=== PATIENT | male | born 1995 | race Caucasian/White ===

== ENCOUNTER 2020-12-15 09:14 | Emergency (ER) | payer OTHER, SELFPAY ==
--- NOTE | ~2020-12-15 | XR_ITS ---
EXAMINATION: XR HAND WRIST, RIGHT CLINICAL INFORMATION: Trauma, pain COMPARISON: None TECHNIQUE: The hand and wrist are imaged in large [id number] images for a total of 3 views. FINDINGS: There are transverse fractures at mid shaft fourth and fifth metacarpals with dorsal angulation of the fracture site. There is no dislocation or destructive process. The remainder of the bony structures appear intact. The ulnar variance is neutral. There are pronator quadratus fat pad appears normal. XR/XR hand wrist RT IMPRESSION: Angulated fractures mid shaft right fourth and fifth metacarpals.
--- NOTE | ~2020-12-15 | XR_ITS ---
EXAMINATION: XR HAND, RIGHT CLINICAL INFORMATION: Post reduction COMPARISON: None TECHNIQUE: 2 views of the right hand. FINDINGS: There are transverse fractures of the mid shafts of the fourth and fifth metacarpal bones. There is a volar angulation of the metacarpal heads and distal shafts with respect to the more proximal shafts that appears unchanged. No other fracture is seen. Joint spaces are normal. There is a new overlying splint. XR/XR hand RT 2V IMPRESSION: No change in alignment of the fourth and fifth metacarpal shaft fractures from previous exam.
[2020-12-15 09:23] VITALS: BP 147/90; PULSE 88; RESP 14; TEMP 36.2; O2SAT 98; BMI 23.0
--- NOTE | 2020-12-15 09:51 | ED.EXTPRO ---
HPI - Extremity Problem General Chief complaint: Extremity Injury, Upper Stated complaint: WOUND CHECK Time Seen by Provider: 12/15/20 09:26 Source: patient Mode of arrival: ambulatory Limitations: no limitations History of Present Illness HPI Narrative: 25 y/o male presenting with right hand and arm pain 2 days after he punched a wall and broke his hand. He lives in [place] and was seen in an ED there after the incident. He was placed in a splint but he does not know what he broke. He was told he may need surgery but he denies being given any ortho follow up. He reports he has been taking Ibuprofen without improvement in his pain. He states the pain is in his hand and shoots up his arm. He denies numbness or tingling. No new injuries. MD Complaint: extremity pain Onset (ago): day(s) (2) Pain Consistency: constant Location: right and upper extremity Quality: aching and sharp Radiation: proximal Relieving factors: elevation and medication Associated symptoms: denies other symptoms Related Data Previous Rx's Medication Instructions Recorded hydrocodone-acetaminophen 1 tab PO Q6H PRN #8 tab 12/15/20 ibuprofen 600 mg PO Q6H PRN #20 tab 12/15/20 Allergies Allergy/AdvReac Type Severity Reaction Status Date / Time No Known Allergies Allergy Verified 12/15/20 09:22 Review of Systems Review of Systems: Constitutional: No Fever, No Chills Gastrointestinal: No Nausea, No Vomiting Musculoskeletal: + joint pain, + Myalgias Skin: No Skin Lesions, No rash Neuro: No Weakness, No Numbness Heme/Lymph: No Bruising PMFSH Social History Social History Smoking Status: Current every day smoker Use of substances other than those prescribed or required for medical reasons: Unknown Advance Directives: No Advance Directives Information Provided: No Physical Exam Vital Signs: Vital Signs: Last Vital Signs Temp 97.1 F 12/15/20 09:23 Pulse 88 12/15/20 09:23 Resp 14 12/15/20 09:23 BP 147/90 H 12/15/20 09:23 Pulse Ox 98 12/15/20 09:23 Body Mass Index 23.0 Appearance: Alert. Oriented X3. No acute distress. HEENT: normal inspection CVS: Normal heart rate and rhythm. Pulses normal. Respiratory: No respiratory distress. Skin: Skin warm and dry. Normal skin color. Normal skin turgor. No rashes. Extremities: right dorsal hand with palpable bony deformity and tenderness, ecchymosis or dorsal hand, limited ROM of 4th & 5th digits. NV intact distally. Neuro: Oriented X 3. No motor deficit. No sensory deficit. Course Course Course Narrative: 25 y/o male presenting with RUE pain after punching a wall. Arrives in splint. Will remove, reassess and reimage. Reevaluation(s) Reevaluation #1: XR showed angulated fractures of 4th and 5th digits. Reduction performed at the bedside with traction after he was given narcotic pain medication. Repeat XR showing no change in alignment. Splint in place. He will follow up with Ortho on Friday Consultations Consultation #1: Orthopedics - Ej Procedures Orthopedic Joint Reduction Joint #1: Time Out Performed: Yes Joint Reduction Location: other (hand) Analgesia: other (vicoden, toradol) Technique used: traction/counter-traction and direct manipulation Post-reduction neuro exam: intact Post-reduction vascular: intact Post Reduction X-Ray Obtained: Yes Post Reduction X-Ray Results: reduced Splint Applied: Yes Patient Tolerated Procedure: well Critical Care Time Critical Care Time Critical Care Time: No Discharge Plan Discharge Clinical Impression: Fracture of hand Qualifiers: Encounter type: subsequent encounter Fracture type: closed Laterality: right Fracture healing: with routine healing Qualified Code(s): S62.91XD - Unspecified fracture of right wrist and hand, subsequent encounter for fracture with routine healing Patient Disposition: Home, Self-Care Instructions: Hand Fracture (ED), Boxer Fracture (ED) Additional Instructions: Your x-rays today showed that you broke 2 bones in your hand. Keep the splint in place until you are evaluated by Orthopedics on Friday. Keep your hand elevated whenever possible & ice it several times per day. Recommend ibuprofen 600-800 mg every 6 hours as needed for pain. Take the prescribed pain medication as needed for pain. Do not drive after taking this medication, it can make you drowsy. Follow up with Orthopedics Friday. Prescriptions: New hydrocodone-acetaminophen 5-325 mg tablet 1 tab PO Q6H PRN (Reason: pain) Qty: 8 RF: 0 ibuprofen 600 mg tablet 600 mg PO Q6H PRN (Reason: pain) Qty: 20 RF: 0 Referrals: Ej Berg PA-C [Physician Corporate Trust Officer] - 2 days (4th & 5th metacarpal fractures s/p reduction) Discharge Date/Time: 12/15/20 12:59
--- NOTE | 2020-12-15 09:52 | PC.NURSE ---
splint removed as instructed by nghia mckeon, +swelling rt hand, cold pack applied and arm elevated, +radial pulse
[2020-12-15] MEDS: oxyCODONE HCl Immed Release 5 MG TABLET PO (10:41)
[2020-12-15] MEDS: Acetaminophen 325 MG TABLET 975 MG PO (10:41)
[2020-12-15] MEDS: Ketorolac Tromethamine 30 MG/ML VIAL IM (10:43)
--- NOTE | 2020-12-15 11:36 | PC.NURSE ---
JAROD LENNON SPOKE WITH [facility] RE: XRAYS AND POC, PA TO REDUCE AND RESPLINT
== END 2020-12-15 12:59 | disposition home or self-care (01) ==
PROVIDERS: Emergency Provider Emergency Medicine Emergency Medical Services
DX: S62.324A Displaced fracture of shaft of fourth metacarpal bone, right hand, initial encounter for closed fracture (principal); S62.326A Displaced fracture of shaft of fifth metacarpal bone, right hand, initial encounter for closed fracture; W22.09XA Striking against other stationary object, initial encounter; Y93.89 Activity, other specified; Y92.9 Unspecified place or not applicable; Y99.9 Unspecified external cause status
CPT/HCPCS: 26605; 73110; 73120; 73130; 96372; 99283; 99284; J1885

== ENCOUNTER → 2020-12-18 10:56 | Outpatient (BNVA) | payer OTHER, SELFPAY | PROVIDERS: Visit Provider Physician Assistant | DX: S62.306A Unspecified fracture of fifth metacarpal bone, right hand, initial encounter for closed fracture (principal); S62.304A Unspecified fracture of fourth metacarpal bone, right hand, initial encounter for closed fracture | CPT/HCPCS: 29085 ==

== ENCOUNTER 2020-12-21 08:47 | Day surgery (SDC) | payer OTHER, SELFPAY ==
[2020-12-20 10:38] VITALS: BMI 23.0
--- NOTE | 2020-12-20 12:18 | HO.ANESPROP2 ---
Documented by User: Jeanine Hurtado 12/20/20 12:20 HPI - Anesthesia Eval Consult details Narrative: 25yo M for Right Finger Fx ORIF,4th,5th metacarpal PMFSH Active Problems Active Problems: All Active Problems (Updated 12/18/20 @ 11:44 by Ej Berg PA-C) Fracture of fourth metacarpal bone of right hand (Acute) Fracture of fifth metacarpal bone of right hand (Acute) Family History Family History Mother No problems noted. Father No problems noted. Social History Social History Alcohol intake: never Smoking Status: Never smoker Substance Use Type: Marijuana Current occupational status: unemployed Meds Allergies Allergy/AdvReac Type Severity Reaction Status Date / Time No Known Allergies Allergy Verified 12/15/20 09:22 Exam Exam Date and Time: December 20, 2020 1218 Height,Weight and Vital Signs: Height 5 ft 7 in Weight 66.678 kg Assessment and Plan Assessment Anesthesia Assessment: Chart Reviewed Documented by User: Kay Fong 12/21/20 10:04 PMFSH Family History Family History Mother No problems noted. Father No problems noted. Social History Social History Alcohol intake: never Smoking Status: Never smoker Substance Use Type: Marijuana Current occupational status: unemployed Meds Allergies Allergy/AdvReac Type Severity Reaction Status Date / Time No Known Allergies Allergy Verified 12/15/20 09:22 Exam Airway Mallampati Class: II TM Dist: >3cm Neck ROM: Full Assessment and Plan Assessment Anesthesia Assessment: Anesthesia Plan Discussed and Chart Reviewed Final Anesthetic Review NPO: Yes ASA Class: I Final Preanesthetic Review: No Changes in Pt Med Stat, Meds/Allgs Chart Reviewed, Consent Obtained/Reviewed and Anes Risks/Benef Reviewed Patient Risk: Low Procedure Risk: Low Assessment/Block/Sedation in SS: Assess/Block/Sedation-SS Anesthetic Plan Anesthetic Plan: GA Disposition: Standard PACU
[2020-12-21] VITALS (12 sets, daily range): BP systolic 123–160; BP diastolic 66–94; PULSE 76–100; RESP 16–18; TEMP 36.4–36.7; O2SAT 97–100
--- NOTE | ~2020-12-21 | FL_ITS ---
EXAMINATION: XR FLUOROSCOPY WITH IMAGES CLINICAL INFORMATION: Reduction fractures fourth and fifth metacarpal right hand. COMPARISON: Radiographs right hand 12/15/2020 TECHNIQUE: Fluoroscopy performed by Dr. Juliann Richardson. Fluoroscopy time: 78 seconds DAP: 42.08 mGycm2 Images: 5 FINDINGS: The fourth and fifth metacarpal shaft fractures are reduced with orthopedic pins along the long axis of the metacarpals. Fracture fragments are in near-anatomic alignment. FL/FL guidance in OR IMPRESSION: Status post reduction fractures right fourth and fifth metacarpals.
[2020-12-21] MEDS: Lactated Ringers 1,000 ML 100 ML IVCONT (09:15)
--- NOTE | 2020-12-21 11:22 | MHC.SHP ---
Pre-Procedural Eval Section B Chief Complaint: finger fx Allergies: Allergies Allergy/AdvReac Type Severity Reaction Status Date / Time No Known Allergies Allergy Verified 12/15/20 09:22 Plan I have reviewed the history and physical and performed a pertinent physical examination on my patient. No changes have occurred unless specified. rt 4,5 mc fxs crpp vs orif
--- NOTE | 2020-12-21 11:23 | W.PM.OPN ---
Operative Note Operative Note Date of Service: 12/21/20 Narrative: Operative Note Narrative: Preop diagnosis: 1. Right 4th metacarpal shaft fracture 2. Right 5th metacarpal shaft fracture Postop diagnosis: Same Procedure: 1. Right 4th Metacarpal fracture open reduction internal fixation 2. Right 5th metacarpal fracture open reduction internal fixation 3. Ulnar nerve block Surgeon: Juliann Richardson MD Anesthesia: General Findings: Metacarpal fractures, interposed muscle Implants: 0.062 K-wires times 2 Tourniquet time: 21 min EBL: Minimal Specimen: None Drains: None Complications: None Disposition: Brought to the recovery room in stable condition Plan: Follow-up in 10-14 days for a wound check, postop radiographs and for placement in a short-arm finger spica cast Anticipate K-wire removal in 4 weeks based on interval bony healing Educate the patient that full fracture healing anticipated in approximately 8-12 weeks. Indications: The patient is 25 years old with right 4th and 5th metacarpal shaft fractures sustained after punching a wall . The risks and benefits of operative treatment, including but not limited to risk of damage to blood vessels, nerves, tendons, infection, recurrence, delayed or nonunion of fracture, persistent pain or numbness, incomplete resolution of preoperative symptoms, or need for further surgery were discussed with the patient and they wished to proceed with surgery. Procedure: Once consent was obtained patient was brought back to the operating suite and placed in the operating table in a supine position. Perioperative antibiotics and general anesthesia was administered by the anesthesia team. A tourniquet was applied to the proximal aspect of the right upper extremity and the limb was prepped and draped in a standard surgical fashion. Tourniquet was not inflated during the case. The FluoroScan was used during the case to assist with our fracture reduction and placement of all implants. A closed reduction was attmpted on the patient's right 4th and 5th metacarpal shaft fractures, but was unsuccessful. A 3 cm longitudinal incision was made centered between the 2 4th and 5th metacarpal fractures. The incision was made through the skin to the subcutaneous tissues using a 15. Blade. I then 1st dissected down to the 4th metacarpal shaft fracture site. There was some muscle interposed and this was removed. An open reduction was then performed. I placed a single 0.062 K-wire retrograde through the head of the 4th metacarpal extending proximally across the fracture site to the base of the metacarpal. I then dissected down to the 5th metacarpal shaft fracture and performed an open reduction. I placed a single 0.062 K-wire retrograde through the head of the 5th metacarpal extending proximally across the fracture site to the base of the metacarpal. Fracture alignment was assessed for both angular and rotational malalignment. Once satisfied with our fracture reduction and implant placement, the K-wires were bent and cut short and pin caps applied. Final fluoroscopic images were then obtained. The wounds were copiously irrigated with normal saline. An ulnar nerve block was then performed by infiltrating about the ulnar nerve at the wrist with some 0.25% plain Marcaine for postop pain control. A Sterile dressing and short volar splint was applied. The patient appears to have tolerated the procedure well and with no complications. All digits were well vascularized at the conclusion of the case.
[2020-12-21] MEDS: fentaNYL citrate/PF 100 MCG/2 ML VIAL 50 MCG IVPUSH ×3 (13:08→13:42)
[2020-12-21] MEDS: Acetaminophen 325 MG TABLET 650 MG PO (13:09)
[2020-12-21] MEDS: oxyCODONE HCl Immed Release 5 MG TABLET PO (13:10)
== END 2020-12-21 14:23 ==
LOC: HO.SSS 08:48
PROVIDERS: Visit Provider Orthopaedic Surgery
PROC: (CPT 26746; principal; 2020-12-21 11:00)
DX: S62.324A Displaced fracture of shaft of fourth metacarpal bone, right hand, initial encounter for closed fracture (principal); S62.326A Displaced fracture of shaft of fifth metacarpal bone, right hand, initial encounter for closed fracture; M62.89 Other specified disorders of muscle; W22.09XA Striking against other stationary object, initial encounter; Y93.89 Activity, other specified; Y92.9 Unspecified place or not applicable; Y99.8 Other external cause status; F17.210 Nicotine dependence, cigarettes, uncomplicated; F12.90 Cannabis use, unspecified, uncomplicated
CPT/HCPCS: 26746 ×2; J0690; J1100; J1885; J2250; J2405; J3010

== ENCOUNTER 2021-01-01 08:34 | Outpatient (REF) | payer OTHER, SELFPAY ==
--- NOTE | ~2021-01-01 | XR_ITS ---
EXAMINATION: XR HAND, RIGHT CLINICAL INFORMATION: Right hand pain. COMPARISON: Right hand radiographs dated 12/15/2020. TECHNIQUE: PA, lateral, and oblique views of the right hand. FINDINGS: Orthopedic wires through the 4th and 5th metacarpals across mid diaphyseal fractures which have improved anatomic alignment when compared to the radiographs dated 12/15/2020. Minimal if any new bone/callus formation. No osseous erosion. No abnormal soft tissue calcification. XR/XR hand RT min 3V IMPRESSION: Orthopedic wires through 4th and 5th metacarpal fractures in near anatomic alignment which has improved when compared to the radiographs dated 12/15/2020. Minimal if any new bone/callus formation.
== END 2021-01-01 08:35 | disposition home or self-care (01) ==
LOC: HO.HOSX 08:34
PROVIDERS: Visit Provider Orthopaedic Surgery
DX: M79.641 Pain in right hand (principal); S62.304A Unspecified fracture of fourth metacarpal bone, right hand, initial encounter for closed fracture; S62.306A Unspecified fracture of fifth metacarpal bone, right hand, initial encounter for closed fracture; X58.XXXA Exposure to other specified factors, initial encounter; Y93.9 Activity, unspecified; Y92.9 Unspecified place or not applicable; Y99.8 Other external cause status
CPT/HCPCS: 73130

== ENCOUNTER 2021-01-18 17:14 | Outpatient (REF) | payer OTHER, SELFPAY ==
--- NOTE | ~2021-01-18 | XR_ITS ---
EXAMINATION: XR HAND, RIGHT CLINICAL INFORMATION: Fracture COMPARISON: Previous x-ray most recent 01/01/2021 TECHNIQUE: Three views of the right hand. FINDINGS: There are pins or wires in the fourth and fifth metacarpal bones transfixing mid shaft fractures. There is some indistinctness of the fracture line and bony callus formation of the fourth metacarpal bone suggestive of some healing. Fifth metacarpal fracture appears unchanged. Alignment is unchanged. No other fracture is seen. Soft tissues are unremarkable. XR/XR hand RT min 3V IMPRESSION: ORIF of right fourth and fifth metacarpal shaft fractures.
== END 2021-01-18 17:15 | disposition home or self-care (01) ==
LOC: HO.HOSX 17:14
PROVIDERS: Visit Provider Orthopaedic Surgery
DX: Z13.89 Encounter for screening for other disorder (principal)

== ENCOUNTER → 2021-01-22 09:06 | Outpatient (BNVA) | payer OTHER, SELFPAY | PROVIDERS: Visit Provider Orthopaedic Surgery | DX: S62.304D Unspecified fracture of fourth metacarpal bone, right hand, subsequent encounter for fracture with routine healing (principal); S62.306D Unspecified fracture of fifth metacarpal bone, right hand, subsequent encounter for fracture with routine healing | CPT/HCPCS: 73130 ==

== ENCOUNTER 2021-02-12 09:15 | Outpatient (REF) | payer OTHER, SELFPAY ==
--- NOTE | ~2021-02-12 | XR_ITS ---
EXAMINATION: XR HAND, RIGHT CLINICAL INFORMATION: Right hand pain. Fracture follow up. COMPARISON: Most recent right hand radiographs dated 01/22/2021. TECHNIQUE: PA, lateral, and oblique views of the right hand. FINDINGS: Interval removal of the 4th and 5th metacarpal orthopedic pins. Redemonstration of minimally displaced fractures through the 4th and 5th metacarpal diaphyses in unchanged anatomic alignment. Persistent fracture gaps appear similar when compared to the prior examination without significant interval new bone/callus formation. XR/XR hand RT min 3V IMPRESSION: Interval removal of 4th and 5th metacarpal orthopedic pins across mid diaphyseal fractures which appear unchanged in alignment when compared to the prior examination. No significant interval new bone/callus formation.
== END 2021-02-12 09:16 | disposition home or self-care (01) ==
LOC: HO.HOSX 09:15
PROVIDERS: Visit Provider Orthopaedic Surgery
DX: S62.304A Unspecified fracture of fourth metacarpal bone, right hand, initial encounter for closed fracture (principal); S62.306A Unspecified fracture of fifth metacarpal bone, right hand, initial encounter for closed fracture
CPT/HCPCS: 73130

== ENCOUNTER 2021-03-12 08:54 | Outpatient (REF) | payer OTHER, SELFPAY | END 2021-03-12 08:55 | disposition home or self-care (01) | LOC: HO.HOSX 08:54 | PROVIDERS: Visit Provider Orthopaedic Surgery | DX: Z13.89 Encounter for screening for other disorder (principal) ==

== ENCOUNTER 2023-05-13 02:59 | Emergency (ER) | payer MEDICAID, SELFPAY ==
[2023-05-13 03:07] VITALS: BP 147/88; PULSE 87; RESP 18; TEMP 36.7; O2SAT 98; BMI 22.7
[2023-05-13 03:54] VITALS: BP 133/69; PULSE 79; RESP 16; O2SAT 98
--- NOTE | 2023-05-13 04:08 | PC.NURSE ---
Pt appears to be sleeping, awakens with verbal command, ambulates with a steady gait, Pt provided us with urine sample, and sent to lab. Pt mother states pt called her from work, disoriented asking where he was, what he's doing, reported smoking marijuana, and thinking it was laced with something, mother reports that pt smokes marijuana daily, and smokes around 50 bags of heroin daily.
[2023-05-13 04:21] LABS: Amphetamine Screen Urine Not Detected (Not Detect); Barbiturates, Urine Not Detected (Not Detect); Benzodiazepines Screen Urine Not Detected (Not Detect); Cannabinoid Screen Urine POSITIVE (Not Detect); Cocaine Screen Urine POSITIVE (Not Detect); Fentanyl, urine POSITIVE (Not Detect); Opiate Screen Urine POSITIVE (Not Detect); Phencyclidine Screen Urine Not Detected (Not Detect)
--- NOTE | 2023-05-13 04:34 | ED_ITS ---
HPI - General Adult General Chief complaint: General Medical Stated complaint: Disoriented, confused Time Seen by Provider: 05/13/23 04:34 Source: patient Mode of arrival: ambulatory Limitations: no limitations History of Present Illness HPI narrative: Patient history of substance abuse use heroin which she use all day yesterday and then he had marijuana last night felt little different think it was laced with something never had similar feeling in the past no nausea no vomiting no shortness of breath no passing out Related Data Previous Rx's Medication Instructions Recorded hydrocodone 5 mg-acetaminophen 325 1 tab PO Q6H PRN pain #8 tabs /19/21 mg tablet ibuprofen 600 mg tablet 600 mg PO Q6H PRN pain #20 tabs 21 hydrocodone 5 mg-acetaminophen 325 1 - 2 tab PO Q6H PRN pain #20 tabs 03//21 mg tablet Allergies Allergy/AdvReac Type Severity Reaction Status Date / Time No Known Allergies Allergy Verified 05/13/23 03:10 Review of Systems Review of Systems: Yes all other systems are reviewed and are negative [facility] Family History Family History Mother No problems noted. Father No problems noted. Social History Social History Alcohol intake: never Smoked in Last 30 Days: Yes Use of substances other than those prescribed or required for medical reasons: Yes Substance Use Type: Heroin and Marijuana Substance Use Type Other:: marijuana Substance Use Frequency: Daily Advance Directives: No Advance Directives Information Provided: No Current occupational status: unemployed Current occupation: rt handed Physical Exam ED Vital Signs: Vital Signs - 24 hr 05/13/23 03:07 05/13/23 03:54 Temperature 98.1 F Pulse Rate 87 79 Respiratory Rate 18 16 Blood Pressure 147/88 H 133/69 Pulse Oximetry 98 98 Oxygen Delivery Method Room Air Room Air BMI result Body Mass Index 22.7 Appearance: Alert. Oriented X3. No acute distress. Eyes: PERRLA, No Nystagmus ENT: Pharynx normal. Oral Mucosa moist Neck: Normal inspection. Neck supple. CVS: Normal heart rate and rhythm. Pulses normal. Respiratory: No respiratory distress. Equal air entry bilateral, no wheezing/rales/rhonchi Abdomen: Soft and nontender. Bowel sounds are present, no mass palpable, no CVA tenderness Skin: Skin warm and dry. Normal skin color. Normal skin turgor. Extremities: No lower extremity edema. No calf tenderness Neuro: Oriented X 3. No motor deficit. No sensory deficit.No cerebellar signs , cranial nerves II-XII intact Medical Decision Making Medical Decision Making [facility] Narrative: Patient urine positive for fentanyl heroin cocaine and marijuana saturating 98% family is with the patient patient at this time does not want to go to detox will be given instructions follow-up with detox if he is interested will give Narcan to take home Lab Data [facility] Lab Attestation statement: I reviewed the patient's lab results. Labs: Lab Results 05/13/23 Range/Units 04:03 Urine Opiates Screen POSITIVE H (Not Detect) Urine Fentanyl Screen POSITIVE H (Not Detect) Ur Barbiturates Screen Not Detected (Not Detect) Ur Phencyclidine Scrn Not Detected (Not Detect) Ur Amphetamines Screen Not Detected (Not Detect) U Benzodiazepines Scrn Not Detected (Not Detect) Urine Cocaine Screen POSITIVE H (Not Detect) U Marijuana (THC) Screen POSITIVE H (Not Detect) Discharge Plan Discharge Clinical Impression: Polysubstance abuse Patient Disposition: Home, Self-Care Instructions: Polysubstance Abuse (ED) Additional Instructions: Stop using drugs Follow-up with detox Prescriptions: No Action hydrocodone-acetaminophen 5-325 mg tablet 1 tab PO Q6H PRN (Reason: pain) Qty: 8 0RF Rx Instructions: for 3 days ibuprofen 600 mg tablet 600 mg PO Q6H PRN (Reason: pain) Qty: 20 0RF hydrocodone-acetaminophen 5-325 mg tablet 1 - 2 tab PO Q6H PRN (Reason: pain) Qty: 20 0RF
[2023-05-13] MEDS: Naloxone HCl Nasal TAKE HOME 4 MG SPRAY 8 MG NOSTRILALT (05:05)
== END 2023-05-13 05:07 | disposition home or self-care (01) ==
PROVIDERS: Emergency Provider Internal Medicine
DX: F19.10 Other psychoactive substance abuse, uncomplicated (principal); F12.90 Cannabis use, unspecified, uncomplicated
CPT/HCPCS: 80307; 99284

== ENCOUNTER 2023-05-21 20:25 | Emergency (ER) | payer MEDICAID, SELFPAY ==
[2023-05-21 20:59] VITALS: BP 130/81; PULSE 98; RESP 16; TEMP 37; O2SAT 99; BMI 25.1
[2023-05-21 22:15] LABS: Hematocrit 42.9 % (42.0-52.0); Hemoglobin 14.3 g/dl (14.0-18.0); Mean Corpuscular HGB Conc 33.3 g/dl (31.0-36.0); Mean Corpuscular Hemoglobin 29.6 pg (27.0-33.0); Mean Corpuscular Volume 88.8 fL (80.0-98.0); Mean Platelet Volume 9.5 fL (9.4-12.4); Platelet Count 244 X10*3/uL (160-400); Red Blood Count 4.83 X10*6/uL (4.60-5.80); Red Cell Distribution Width 12.7 % (11.0-16.0); White Blood Count 9.3 X10*3/uL (4.8-10.8)
[2023-05-21 22:29] LABS: Alanine Aminotransferase 310 U/L (0-40); Albumin Level 4.1 g/dL (3.5-5.0); Alkaline Phosphatase 138 U/L (39-117); Anion Gap 13 (12-20); Aspartate Amino Transferase 155 U/L (5-37); Bilirubin Total 0.5 mg/dL (0.0-1.0); Blood Urea Nitrogen 9 mg/dL (9-16); Calcium 9.3 mg/dL (8.4-10.2); Carbon Dioxide 26 mmol/L (22-29); Chloride 104 mmol/L (96-108); Creatinine Clr Calc Pharmacy 141.4; Estimated Glomerular Filt Rate > 60; Glucose Random 79 mg/dL (60-115); Potassium 3.7 mmol/L (3.3-5.1); Sodium 139 mmol/L (135-145); Total Protein 7.4 g/dL (6.5-8.0)
--- NOTE | 2023-05-21 23:39 | ED_ITS ---
HPI - General Adult General Chief complaint: General Medical Stated complaint: freddy feet swelling Time Seen by Provider: 05/21/23 22:52 Source: patient Mode of arrival: ambulatory Limitations: no limitations History of Present Illness HPI narrative: Patient with history substance abuse cocaine fentanyl and marijuana take Tylenol 3 -4 tab every day comes here for bilateral leg swelling specially L leg with slight rash no fever no chills no abdominal pain no nausea no vomiting left foot had insect bite few days ago Related Data Previous Rx's Medication Instructions Recorded hydrocodone 5 mg-acetaminophen 325 1 tab PO Q6H PRN pain #8 tabs 12/15/20 mg tablet ibuprofen 600 mg tablet 600 mg PO Q6H PRN pain #20 tabs 12/15/20 hydrocodone 5 mg-acetaminophen 325 1 - 2 tab PO Q6H PRN pain #20 tabs 12/21/ mg tablet cephalexin 500 mg capsule 500 mg PO QID 10 days #40 caps 05/22/23 doxycycline hyclate 100 mg tablet 100 mg PO BID #20 tabs 05/22/23 Allergies Allergy/AdvReac Type Severity Reaction Status Date / Time No Known Allergies Allergy Verified 05/13/23 03:10 Review of Systems Review of Systems: Yes all other systems are reviewed and are negative [facility] Family History Family History Mother No problems noted. Father No problems noted. Social History Social History Alcohol intake: never Substance Use Type: Heroin and Marijuana Advance Directives: No Advance Directives Information Provided: No Current occupational status: unemployed Current occupation: rt handed Physical Exam ED Vital Signs: Vital Signs - 24 hr 05/21/23 20:59 Temperature 98.6 F Pulse Rate 98 Respiratory Rate 16 Blood Pressure 130/81 Pulse Oximetry 99 Oxygen Delivery Method Room Air BMI result Body Mass Index 25.1 Appearance: Alert. Oriented X3. No acute distress. Eyes: PERRLA, No Nystagmus no pallor or icterus ENT: Pharynx normal. Oral Mucosa moist Neck: Normal inspection. Neck supple. CVS: Normal heart rate and rhythm. Pulses normal. Respiratory: No respiratory distress. Equal air entry bilateral, no whe ezing/rales/rhonchi Abdomen: Soft and nontender. Bowel sounds are present, no mass palpable, no CVA tenderness Skin: Skin warm and dry. Normal skin color. Normal skin turgor. Extremities: Left leg with erythematous rash in 1+ pitting edema. No calf tenderness Neuro: Oriented X 3. No motor deficit. No sensory deficit.No cerebellar signs , cranial nerves II-XII intact Medications Administered Discontinued Medications Generic Name Dose Route Start Last Admin Trade Name Freq PRN Reason Stop Dose Admin Cephalexin HCl 500 mg 05/22/23 00:07 05/22/23 00:17 Cephalexin 500 Mg Capsule PO 05/22/23 00:08 500 mg ONCE ONE Administration Doxycycline Monohydrate 100 mg 05/22/23 00:07 05/22/23 00:17 Doxycycline Monohydrate 100 Mg Capsule PO 05/22/23 00:08 100 mg ONCE ONE Administration Medical Decision Making Medical Decision Making [facility] Narrative: Patient's elevated liver enzymes etiology not very clear patient uses drugs but no alcohol use will check Tylenol less patient denies any alcohol use Tylenol level is normal 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 05/21/23 22:08 05/21/23 22:08 Labs: Lab Results 05/21/23 05/21/23 05/21/23 Range/Units 22:08 22:08 23:59 WBC 9.3 (4.8-10.8) X10*3/uL RBC 4.83 (4.60-5.80) X10*6/uL Hgb 14.3 (14.0-18.0) g/dl Hct 42.9 (42.0-52.0) % MCV 88.8 (80.0-98.0) fL MCH 29.6 (27.0-33.0) pg MCHC 33.3 (31.0-36.0) g/dl RDW 12.7 (11.0-16.0) % Plt Count 244 (160-400) X10*3/uL MPV 9.5 (9.4-12.4) fL Absolute Nucleated RBC 0.000 (0.0-0.012) X10*3/uL Nucleated RBC % (auto) 0.0 (0.0-0.2) /100WBC Sodium 139 (135-145) mmol/L Potassium 3.7 (3.3-5.1) mmol/L Chloride 104 (96-108) mmol/L Carbon Dioxide 26 (22-29) mmol/L Anion Gap 13 (12-20) BUN 9 (9-16) mg/dL Creatinine 0.74 (0.5-1.4) mg/dL Estim Creat Clear Calc 141.4 Estimated GFR > 60 Random Glucose 79 (60-115) mg/dL Calcium 9.3 (8.4-10.2) mg/dL Total Bilirubin 0.5 (0.0-1.0) mg/dL AST 155 H (5-37) U/L ALT 310 H (0-40) U/L Alkaline Phosphatase 138 H (39-117) U/L Total Protein 7.4 (6.5-8.0) g/dL Albumin 4.1 (3.5-5.0) g/dL Acetaminophen < 17 (<30) mcg/mL Discharge Plan Discharge Clinical Impression: Cellulitis, Elevated LFTs Patient Disposition: Home, Self-Care Instructions: Cellulitis (ED) Additional Instructions: Do not take Tylenol stop taking cocaine and other street drugs Your liver enzymes are elevated need to follow-up with gastroenterology Take antibiotic as advised for cellulitis Keep your leg elevated Prescriptions: New cephalexin 500 mg capsule 500 mg PO QID 10 Days Qty: 40 0RF doxycycline hyclate 100 mg tablet 100 mg PO BID Qty: 20 0RF No Action hydrocodone-acetaminophen 5-325 mg tablet 1 tab PO Q6H PRN (Reason: pain) Qty: 8 0RF Rx Instructions: for 3 days ibuprofen 600 mg tablet 600 mg PO Q6H PRN (Reason: pain) Qty: 20 0RF hydrocodone-acetaminophen 5-325 mg tablet 1 - 2 tab PO Q6H PRN (Reason: pain) Qty: 20 0RF Stand Alone Forms: Work/School Release Interventions: ED Discharge Assessment Last Done: 05/22/23 00:20 Discharge Date/Time: 05/22/23 00:22
[2023-05-22] MEDS: cephALEXin 500 MG CAPSULE PO (00:17)
[2023-05-22] MEDS: Doxycycline Monohydrate 100 MG CAPSULE PO (00:17)
[2023-05-22 00:24] LABS: Acetaminophen LAB < 17 mcg/mL (<30)
== END 2023-05-22 00:22 | disposition home or self-care (01) ==
PROVIDERS: Emergency Provider Internal Medicine
DX: L03.116 Cellulitis of left lower limb (principal); R60.0 Localized edema; R21 Rash and other nonspecific skin eruption; R79.89 Other specified abnormal findings of blood chemistry; Z79.899 Other long term (current) drug therapy
CPT/HCPCS: 36415; 80053; 80143; 85027; 99282; 99283

== ENCOUNTER 2023-09-24 15:50 | Emergency (ER) | payer MEDICAID, SELFPAY ==
--- NOTE | 2023-09-24 16:27 | ED_ITS ---
HPI - Back Pain/Injury General Chief Complaint: Back Pain/Injury Stated Complaint: sharp back pain Time Seen by Provider: 09/24/23 20:14 Source: patient, RN notes reviewed and old records reviewed Mode of arrival: ambulatory History of Present Illness HPI Narrative: 28-year-old male with no significant past history presenting to the ED complaining of nonradiating left-sided low back pain x 3 days with intermittent left side pain. denies known injury/ trauma or fall. Patient also reports had outpatient labs a few months ago and was noted to have elevated liver enzymes and is concerned about this/his back pain being related to elevated LFTs. Also reports 1 episode of dysuria. Denies fever/chills, incontinence/retention, fall, hematuria, Tylenol/ETOH use Related Data Previous Rx's Medication Instructions Recorded hydrocodone 5 mg-acetaminophen 325 1 tab PO Q6H PRN pain #8 tabs 12/15/20 mg tablet ibuprofen 600 mg tablet 600 mg PO Q6H PRN pain #20 tabs 12/15/20 hydrocodone 5 mg-acetaminophen 325 1 - 2 tab PO Q6H PRN pain #20 tabs 12/21/20 mg tablet cephalexin 500 mg capsule 500 mg PO QID 10 days #40 caps 05/22/23 doxycycline hyclate 100 mg tablet 100 mg PO BID #20 tabs 05/22/23 cyclobenzaprine 5 mg tablet 5 mg PO Q8H PRN pain (scale score 09/24/23 7-10) 5 days #14 tabs lidocaine 5 % topical patch 1 patch topical DAILY PRN pain #30 09/24/23 (Lidoderm) ea naproxen 500 mg tablet 500 mg PO BID PRN pain 10 days #20 09/24/23 tabs doxycycline hyclate 100 mg tablet 100 mg PO BID #14 tabs 09/25/23 moxifloxacin 400 mg tablet 400 mg PO DAILY 7 days #7 tabs 09/25/23 Allergies Allergy/AdvReac Type Severity Reaction Status Date / Time No Known Allergies Allergy Verified 05/13/23 03:10 Review of Systems 2 Review of Systems: Constitutional: No Fever, No Chills ENT/Mouth: No Ear Pain, No Nasal Congestion, No sore throat, No Rhinorrhea, No Swallowing Difficulty Cardiovascular: No Chest Pain, No SOB Respiratory: No Cough Gastrointestinal: No Nausea, No Vomiting, No Diarrhea, No Constipation, No Abdominal pain Genitourinary: +Dysuria, No Urinary Frequency, No Hematuria, No Urinary Incontinence/retention, No Flank Pain Musculoskeletal: + joint pain, No Myalgias, No Joint Swelling Skin: No Skin Lesions, No rash Neuro: No Weakness, No Numbness, No Paresthesias Yes all other systems are reviewed and are negative Constitutional: Constitutional: Reports as per [facility] Past Medical History Attestation statement: The following information was validated with the patient. Source: old records reviewed Medical History No pertinent past medical history Family History Family History Mother No problems noted. Father No problems noted. Social History Social History Alcohol intake: current Alcohol intake frequency: a few times a week Smoked in Last 30 Days: Yes Use of substances other than those prescribed or required for medical reasons: Yes Substance Use Type: Heroin Substance Use Frequency: Daily Advance Directives: No Advance Directives Information Provided: Yes Current occupational status: unemployed Current occupation: rt handed Physical Exam 2 Vital Signs: Vital Signs: Last Vital Signs Temp 98.8 F 09/24/23 20:25 Pulse 74 09/24/23 20:25 Resp 16 09/24/23 20:25 BP 206/117 H 09/24/23 20:25 Pulse Ox 98 09/24/23 20:25 O2 Del Method Room Air 09/24/23 20:25 BMI result Body Mass Index 29.3 Const: General: cooperative, healthy appearing and no acute distress O rientation/consciousness: patient oriented x3 Limitations: no limitations HEENT: Head: Yes normal to inspection and Yes atraumatic Ears: hearing grossly normal bilaterally General nose exam: Normal external nose present Face and sinus: Yes normal facial exam Eyes: General: appearance normal, both eyes and all related structures EOM: EOMs intact bilaterally Neck: Neck: Yes normal visual inspection and Yes no meningeal signs Resp: Effort & Inspection: normal respiratory effort and no respiratory distress Cardio: Rate: regular rate GI: Inspection: Yes normal to inspection Palpation (GI): Soft to palpation, nontender, no guarding and not rigid : General: Yes no CVA tenderness Back/Spine/Pelvis: Other: No midline cervical/thoracic/lumbar spinous tenderness/step-off or deformity. +Left lower lumbar MSK ttp. no erythema, rash or ecchymosis Back: no CVA tenderness Skin: Rashes: no rashes Wounds: no wounds Neuro: Other: Strength intact throughout. No saddle anesthesia. Sensation intact to light touch. Neurovascular intact distally General: patient oriented x3, gait normal, tone normal, moves all extremities and no meningeal signs Cranial nerves: Yes CN's II-XII intact bilaterally Gait exam (Neuro): Normal gait present Motor exam (neuro): 5/5 motor strength present throughout Extrem: General: Yes normal to inspection Course Course Course Narrative: RME: 28 yo M w/no sig PMHx presenting to the ED c/o elevated liver enzymes on outpatient labs ?a few months ago, now c/o left low back pain x3 days & periumbilical abdominal pain. denies incontinence/retention, fever, falls, dysuria. denies taking Tylenol/ETOH use Labs, UA ordered Full HPI, ROS and PE to be performed by primary ED provider. -2028-- labs reassuring. ALT mildly elevated however improved from priors. UA not infected Results discussed with patient including worrisome signs and symptoms and strict return precautions, and when to return to the emergency department. They verbalized understanding and feel safe for discharge at this time. Medical Decision Making Medical Decision Making [facility] Narrative: 28-year-old male with no significant past history presenting to the ED complaining of nonradiating left-sided low back pain x 3 days with intermittent left side pain. On exam vital signs stable, NAD, nontoxic appearing, PE as above. No midline spinous tenderness red flag symptoms. Ambulating with steady gait. Abdomen soft/nontender. Concern for MSK pain/strain vs UTI or ?pyelo or stone. low suspicion for diverticulitis, testicular torsion, zoster or fracture. Unlikely cauda equina/cord compression plan: Labs, UA Please refer to course for remaining clinical decision making, interpretation of labs/imaging results, and discussions with consultants and/or family members. Differential Diagnosis Differential Diagnoses: The differential diagnosis associated with the presentation includes As above Lab Data [facility] Lab Attestation statement: I reviewed the patient's lab results. 09/24/23 17:03 12/27/23 17:03 Labs: Lab Results 09/24/23 09/24/23 Range/Units 17:03 18:49 WBC 7.9 (4.8-10.8) X10*3/uL RBC 5.13 (4.60-5.80) X10*6/uL Hgb 14.6 (14.0-18.0) g/dl Hct 43.2 (42.0-52.0) % MCV 84.2 (80.0-98.0) fL MCH 28.5 (27.0-33.0) pg MCHC 33.8 (31.0-36.0) g/dl RDW 12.3 (11.0-16.0) % Plt Count 243 (160-400) X10*3/uL MPV 9.1 L (9.4-12.4) fL Immature Gran % (Auto) 0.5 H (0.0-0.4) % Neut % (Auto) 59.6 (45-73) % Lymph % (Auto) 29.9 (20-40) % [place] % (Auto) 8.4 (2-11) % Eos % (Auto) 1.1 (0-4) % Baso % (Auto) 0.5 (0-2) % Lymph # (Auto) 2.4 (1.2-4.9) X10*3/uL [place] # (Auto) 0.7 (0.1-1.2) X10*3/uL Eos # (Auto) 0.1 (0.0-0.4) X10*3/uL Baso # (Auto) 0.0 (0.0-0.2) X10*3/uL Abs Immat Gran (auto) 0.04 H (0.00-0.03) X10*3/uL Absolute Neuts (auto) 4.7 (2.0-8.3) x10*3/uL Absolute Nucleated RBC 0.000 (0.0-0.012) X10*3/uL Nucleated RBC % (auto) 0.0 (0.0-0.2) /100WBC Sodium 141 (135-145) mmol/L Potassium 3.5 (3.3-5.1) mmol/L Chloride 108 (96-108) mmol/L Carbon Dioxide 28 (22-29) mmol/L Anion Gap 9 L (12-20) BUN 9 (9-16) mg/dL Creatinine 0.80 (0.5-1.4) mg/dL Estim Creat Clear Calc 145.7 Estimated GFR > 60 Random Glucose 83 (60-115) mg/dL Calcium 9.6 (8.4-10.2) mg/dL Magnesium 2.0 (1.6-2.6) mg/dL Total Bilirubin 0.5 (0.0-1.0) mg/dL Direct Bilirubin 0.2 (0.0-0.5) mg/dL AST 37 (5-37) U/L ALT 92 H (0-40) U/L Alkaline Phosphatase 101 (39-117) U/L Total Protein 7.2 (6.5-8.0) g/dL Albumin 4.1 (3.5-5.0) g/dL Lipase 9 (8-78) U/L Urine Color Yellow Urine Appearance Clear Urine pH 6.5 (5.0-9.0) Ur Specific [place] 1.020 (1.005-1.025) Urine Protein Negative (Neg-Trace) mg/dL Urine Glucose (UA) Negative (Negative) mg/dL Urine Ketones Negative (Negative) mg/dL Urine Blood Negative (Negative) Urine Nitrite Negative (Negative) Ur Leukocyte Esterase Trace H (Negative) Urine RBC 0-2 (0-2) /HPF Urine WBC 0-5 (0-5) /HPF Ur Squamous Epith Cells 0-2 (0-2) /HPF Urine Bacteria None Seen (None Seen) Hyaline Casts 0-2 (0-2) /LPF External Record Review External record reviewed: Inpatient record, Office record, Outpatient record, Prior outpatient labs, Prior outpatient radiology, Primary care record and Outside ED record Tests considered The following testing was considered but not selected: As above Prescription Management I considered prescription management with: Pain Medication and Antibiotic Discharge Plan Discharge Clinical Impression: Low back pain Patient Disposition: Home, Self-Care Instructions: Acute Low Back Pain (ED) Additional Instructions: Your pain is likely musculoskeletal your blood work and urine were reassuring Flexeril is a muscle relaxer, take at night as it makes you drowsy, do not drive, drink alcohol, or operate machinery while taking it Naproxen as an anti-inflammatory / pain medication, take with food Lidoderm patches are numbing patches, apply to painful area avoid alcohol and Tylenol as can make your liver enzymes worse If symptoms persist or worsen, pain becomes unbearable, you developed urinary retention or incontinence, or weakness return to the ED Prescriptions: New lidocaine [Lidoderm] 5 % adhesive patch,medicated 1 patch topical DAILY MDD remove after 12 hours PRN (Reason: pain) Qty: 30 0RF Rx Instructions: leave on most painful area for up to 12 hrs naproxen 500 mg tablet 500 mg PO BID PRN (Reason: pain) 10 Days Qty: 20 0RF cyclobenzaprine 5 mg tablet 5 mg PO Q8H PRN (Reason: pain (scale score 7-10)) 5 Days Qty: 14 0RF No Action hydrocodone-acetaminophen 5-325 mg tablet 1 tab PO Q6H PRN (Reason: pain) Qty: 8 0RF Rx Instructions: for 3 days ibuprofen 600 mg tablet 600 mg PO Q6H PRN (Reason: pain) Qty: 20 0RF hydrocodone-acetaminophen 5-325 mg tablet 1 - 2 tab PO Q6H PRN (Reason: pain) Qty: 20 0RF cephalexin 500 mg capsule 500 mg PO QID 10 Days Qty: 40 0RF doxycycline hyclate 100 mg tablet 100 mg PO BID Qty: 20 0RF doxycycline hyclate 100 mg tablet 100 mg PO BID Qty: 14 0RF moxifloxacin 400 mg tablet 400 mg PO DAILY 7 Days Qty: 7 0RF Rx Instructions: start after you finish doxycycline Referrals: [facility] [place] [facility] [place] [facility] [Provider Group] [facility] [Primary Care Provider] - 1 week Interventions: ED Discharge Assessment Last Done: 09/24/23 20:43 Discharge Date/Time: 09/24/23 20:48
[2023-09-24 16:28] VITALS: BP 135/76; PULSE 92; RESP 18; TEMP 36.8; O2SAT 97; BMI 29.3
[2023-09-24 17:31] LABS: MANUAL DIFF FLAG NO
[2023-09-24 17:40] LABS: Basophils Percent Auto 0.5 % (0-2); Eosinophils Absolute Auto 0.1 X10*3/uL (0.0-0.4); Eosinophils Percent Auto 1.1 % (0-4); Hematocrit 43.2 % (42.0-52.0); Hemoglobin 14.6 g/dl (14.0-18.0); Imm Gran Abs Auto 0.04 X10*3/uL (0.00-0.03); Imm Gran Pct Auto 0.5 % (0.0-0.4); Lymphocytes Absolute Auto 2.4 X10*3/uL (1.2-4.9); Lymphocytes Percent Auto 29.9 % (20-40); Mean Corpuscular HGB Conc 33.8 g/dl (31.0-36.0); Mean Corpuscular Hemoglobin 28.5 pg (27.0-33.0); Mean Corpuscular Volume 84.2 fL (80.0-98.0); Mean Platelet Volume 9.1 fL (9.4-12.4); Monocytes Absolute Auto 0.7 X10*3/uL (0.1-1.2); Monocytes Percent Auto 8.4 % (2-11); Neutrophils Absolute Auto 4.7 x10*3/uL (2.0-8.3); Neutrophils Percent Auto 59.6 % (45-73); Platelet Count 243 X10*3/uL (160-400); Red Blood Count 5.13 X10*6/uL (4.60-5.80); Red Cell Distribution Width 12.3 % (11.0-16.0); White Blood Count 7.9 X10*3/uL (4.8-10.8)
[2023-09-24 17:49] LABS: Alanine Aminotransferase 92 U/L (0-40); Albumin Level 4.1 g/dL (3.5-5.0); Alkaline Phosphatase 101 U/L (39-117); Anion Gap 9 (12-20); Aspartate Amino Transferase 37 U/L (5-37); Bilirubin Direct 0.2 mg/dL (0.0-0.5); Bilirubin Total 0.5 mg/dL (0.0-1.0); Blood Urea Nitrogen 9 mg/dL (9-16); Calcium 9.6 mg/dL (8.4-10.2); Carbon Dioxide 28 mmol/L (22-29); Chloride 108 mmol/L (96-108); Creatinine Clr Calc Pharmacy 145.7; Estimated Glomerular Filt Rate > 60; Glucose Random 83 mg/dL (60-115); Lipase 9 U/L (8-78); Potassium 3.5 mmol/L (3.3-5.1); Sodium 141 mmol/L (135-145); Total Protein 7.2 g/dL (6.5-8.0)
[2023-09-24 18:58] LABS: Appearance Urine Clear; Color Urine Yellow; Glucose Urine UA Negative (Negative); Leukocyte Esterase Urine Trace (Negative); Nitrite Urine Negative (Negative); PH 6.5 (5.0-9.0); UMIC TRIGGER UACC YES; Urine Blood Negative (Negative); Urine Ketones Negative (Negative); Urine Protein Negative (Neg-Trace)
[2023-09-24 19:00] VITALS: BP 128/77; PULSE 94; RESP 18; TEMP 37; O2SAT 99
[2023-09-24 19:01] LABS: Bacteria Urine None Seen (None Seen); Hyaline Casts Urine 0-2 /LPF (0-2); RBC Urine 0-2 /HPF (0-2); Squamous Epithelial Cell Urine 0-2 /HPF (0-2); WBC Urine 0-5 /HPF (0-5)
[2023-09-24 20:25] VITALS: BP 206/117; PULSE 74; RESP 16; TEMP 37.1; O2SAT 98
== END 2023-09-24 20:48 | disposition home or self-care (01) ==
PROVIDERS: Physician Assistant; Emergency Provider Emergency Medicine
DX: M54.50 Low back pain, unspecified (principal); R30.0 Dysuria
CPT/HCPCS: 36415; 80048; 80076; 81001; 83690; 83735; 85025; 99283

== ENCOUNTER 2023-09-24 23:58 | Emergency (ER) | payer MEDICAID, SELFPAY | END 2023-09-25 00:27 | disposition left against medical advice (07) | PROVIDERS: Emergency Provider Emergency Medicine | DX: Z00.00 Encounter for general adult medical examination without abnormal findings (principal) ==

== ENCOUNTER 2023-09-25 04:41 | Emergency (ER) | payer MEDICAID, SELFPAY ==
[2023-09-25 05:19] VITALS: BP 133/83; PULSE 68; RESP 18; TEMP 36.2; O2SAT 98; BMI 29.0
--- NOTE | 2023-09-25 07:28 | ED.MALEGU ---
HPI - Male Genitourinary General Chief complaint: General Medical Stated complaint: Gen Med Time Seen by Provider: 09/25/23 07:26 Source: patient Mode of arrival: ambulatory Limitations: no limitations History of Present Illness HPI Narrative: 28 yo male just told by female partner that she tested positive for mycoplasma genitalium infection. He has no symptoms here to get tested. MD Complaint: possible STD exposure Onset (ago): day(s) (few) Duration: constant Location: penis Radiation: penis Severity: mild Relieving factors: none Exacerbating factors: none Context: known STD exposure Associated symptoms: Reports denies other symptoms Related Data Previous Rx's Medication Instructions Recorded hydrocodone 5 mg-acetaminophen 325 1 tab PO Q6H PRN pain #8 tabs 12/15/20 mg tablet ibuprofen 600 mg tablet 600 mg PO Q6H PRN pain #20 tabs 12/15/20 hydrocodone 5 mg-acetaminophen 325 1 - 2 tab PO Q6H PRN pain #20 tabs 12/21/20 mg tablet cephalexin 500 mg capsule 500 mg PO QID 10 days #40 caps 05/22/23 doxycycline hyclate 100 mg tablet 100 mg PO BID #20 tabs 05/22/23 cyclobenzaprine 5 mg tablet 5 mg PO Q8H PRN pain (scale score 09/24/23 7-10) 5 days #14 tabs lidocaine 5 % topical patch 1 patch topical DAILY PRN pain #30 09/24/23 (Lidoderm) ea naproxen 500 mg tablet 500 mg PO BID PRN pain 10 days #20 09/24/23 tabs doxycycline hyclate 100 mg tablet 100 mg PO BID #14 tabs 09/25/23 moxifloxacin 400 mg tablet 400 mg PO DAILY 7 days #7 tabs 09/25/23 Allergies Allergy/AdvReac Type Severity Reaction Status Date / Time No Known Allergies Allergy Verified 05/13/23 03:10 Review of Systems Review of Systems: Constitutional : No Weight loss, No Fever, No Chills ENT/Mouth : No sore throat, No Rhinorrhea Eyes: No Swelling, No Redness Cardiovascular : No Chest Pain, No SOB, NoEdema Respiratory : No Cough, No Sputum, No Wheezing Gastrointestinal : no Nausea, no Vomiting, no Diarrhea, no abdominal Pain, No Hematochezia, No Melena Genitourinary : No Dysuria, No Urinary Frequency, No Hematuria, No Urgency Musculoskeletal : No joint pain, No Myalgias, No Joint Swelling Skin : No Skin Lesions, No rash Neuro : No Weakness, No Numbness, No Dizziness, No Headache Psych : No Anxiety/Panic, No Depression All other systems reviewed and are negative. [facility] Past Medical History Attestation statement: The following information was validated with the patient. Source: old records reviewed Medical History No pertinent past medical history Family History Family History Mother No problems noted. Father No problems noted. Social History Social History Alcohol intake: current Alcohol intake frequency: a few times a week Substance Use Type: Heroin Current occupational status: unemployed Current occupation: rt handed Physical Exam Vital Signs: Vital Signs: Last Vital Signs Temp 98.4 F 09/25/23 07:31 Pulse 68 09/25/23 07:31 Resp 16 09/25/23 07:31 BP 123/72 09/25/23 07:31 Pulse Ox 95 09/25/23 07:31 O2 Del Method Room Air 09/25/23 07:31 BMI result Body Mass Index 29.0 Appearance: Alert. Oriented X3. No acute distress. Eyes: Pupils equal, round and reactive to light. ENT: Pharynx normal. Neck: Normal inspection. Neck supple. CVS: Normal heart rate and rhythm. Pulses normal. Respiratory: No respiratory distress. Breath sounds normal. Abdomen: Soft and nontender. : no acute findings Skin: Skin warm and dry. Normal skin color. Normal skin turgor. Extremities: No lower extremity edema. No calf ttp Neuro: Oriented X 3. No motor deficit. No sensory deficit. Medical Decision Making Medical Decision Making [facility] Narrative: 28 yo male with no sig PMH here with known STI exposure - told he was exposed to mycoplasma genitalium - has no symptoms. At this time will need labs and GC testing. Start on doxy x 7 days then moxifloxacin x 7 days. [facility]er [facility] Differential Diagnosis Differential Diagnoses: The differential diagnosis associated with the presentation includes STI testing Lab Data [facility] Lab Attestation statement: I reviewed the patient's lab results. External Record Review External record reviewed: Office record Prescription Management I considered prescription management with: Antibiotic and Other Discharge Plan Discharge Clinical Impression: Possible exposure to STI Patient Disposition: Home, Self-Care Instructions: Sexually Transmitted Diseases (ED) Additional Instructions: IT IS IMPORTANT YOU COMPLETE THE DOXYCYCLINE FIRST AND THEN THE MOXIFLOXACIN AFTER. return for fevers, vomiting, pain or any other concerns. while on moxifloxacin please do not do strenuous exercise - you can injury a tendon do no resume normal exercise for 5 days after you finish moxifloxacin you should not be having sex for 2 weeks use a condom go to [facility] further testing including HIV, syphillis, herpes we will call you with positive results. On doxycycline, do not take pills immediately before going to bed and swallow pills with plenty of water. Avoid direct sunlight, iron, antacids, and Pepto Bismol. Call your provider if you develop new ringing in your ears, new problems hearing, dizziness, difficulty swallowing, rash, abdominal discomfort, nausea, or diarrhea.? Prescriptions: New doxycycline hyclate 100 mg tablet 100 mg PO BID Qty: 14 0RF moxifloxacin 400 mg tablet 400 mg PO DAILY 7 Days Qty: 7 0RF Rx Instructions: start after you finish doxycycline No Action hydrocodone-acetaminophen 5-325 mg tablet 1 tab PO Q6H PRN (Reason: pain) Qty: 8 0RF Rx Instructions: for 3 days ibuprofen 600 mg tablet 600 mg PO Q6H PRN (Reason: pain) Qty: 20 0RF hydrocodone-acetaminophen 5-325 mg tablet 1 - 2 tab PO Q6H PRN (Reason: pain) Qty: 20 0RF cephalexin 500 mg capsule 500 mg PO QID 10 Days Qty: 40 0RF doxycycline hyclate 100 mg tablet 100 mg PO BID Qty: 20 0RF lidocaine [Lidoderm] 5 % adhesive patch,medicated 1 patch topical DAILY MDD remove after 12 hours PRN (Reason: pain) Qty: 30 0RF Rx Instructions: leave on most painful area for up to 12 hrs naproxen 500 mg tablet 500 mg PO BID PRN (Reason: pain) 10 Days Qty: 20 0RF cyclobenzaprine 5 mg tablet 5 mg PO Q8H PRN (Reason: pain (scale score 7-10)) 5 Days Qty: 14 0RF Stand Alone Forms: Work/School Release
[2023-09-25 07:31] VITALS: BP 123/72; PULSE 68; RESP 16; TEMP 36.9; O2SAT 95
[2023-09-25 07:42] LABS: Appearance Urine Clear; Color Urine Dark Yellow; Glucose Urine UA Negative (Negative); Leukocyte Esterase Urine Trace (Negative); Nitrite Urine Negative (Negative); Specific Gravity - Urine 1.025 (1.005-1.025); UMIC TRIGGER UACC YES; Urine Blood Negative (Negative); Urine Ketones Trace mg/dL (Negative); Urine Protein Trace mg/dL (Neg-Trace)
[2023-09-25 07:59] LABS: Bacteria Urine None Seen (None Seen); Other Crystals Urine Present; Squamous Epithelial Cell Urine 0-2 /HPF (0-2); WBC Urine 0-5 /HPF (0-5)
--- NOTE | 2023-09-25 08:03 | PC.NURSE ---
pt is alert but slightly drowsy, skin appropriate for ethnicity, respirations even and unlabored, pt states that his partner texted him saying she was just diagnosed with an STI called mycoplasma genitalium and wants to be tested, pt denies any symptoms
[2023-09-25 12:29] LABS: CT PCR NOT DETECTED (Not Detect.); NG PCR NOT DETECTED (Not Detect.)
[2023-09-29 20:43] LABS: Mycoplasma genitalium NAA Detected (Not Detected)
== END 2023-09-25 09:30 | disposition home or self-care (01) ==
PROVIDERS: Emergency Provider Emergency Medicine
DX: Z20.2 Contact with and (suspected) exposure to infections with a predominantly sexual mode of transmission (principal); Z79.899 Other long term (current) drug therapy
CPT/HCPCS: 0353U; 81001; 87563; 99283; 99284